=== PATIENT | female | born 1975 | race Caucasian/White ===

== ENCOUNTER → 2023-05-16 | Outpatient (CLI) | payer BC ==
--- NOTE | 2023-05-16 16:07 | P.SLEEP ---
History of Present Illness DATE: 05/16/2023 CONSULTATION/NEW PATIENT EVALUATION HISTORY OF PRESENT ILLNESS/SLEEP-WAKE EVALUATION: 48-year-old lady had been ev aluated in the sleep center for possible obstructive sleep apnea hypopnea syndrome. SLEEP SCHEDULE: Usually sleep schedule from 1pm to 6 AM on weekdays and from 11 PM to 8 AM on the weekend. FALLING ASLEEP: Sometimes patient has difficulties with falling asleep, has TV set in bedroom. DURING SLEEP: Patient usually sleeps on the side and back position with snoring and several awakenings from sleep. Positive history of episodes of gasping for air. No history of hypnogogical hallucinations, sleep paralysis, or cataplexy. DURING THE DAY/WAKE STATE: During the day patient may feel sleepiness especially as a passenger in the car.. [place] sleepiness scale is 8. Patient takes 1 nap at 4 PM. PAST MEDICAL HISTORY: Mostly negative. PAST SURGICAL HISTORY: Cholecystectomy, D&C. MEDICATIONS: control pills. SOCIAL HISTORY: Negative for smoking or using alcohol. FAMILY HISTORY: Snoring, headaches, cancer, arthritis. REVIEW OF SYSTEMS: Snoring, awakenings from sleep. No fevers. No double vision. No recent chest pain. No shortness of breath. No abdominal pain. No bleeding episodes. No blood in urine. No seizure episodes. PHYSICAL EXAMINATION: GENERAL: A pleasant patient without any distress. VITAL SIGNS: BP 153/105, HR 78, RR 16, weight 208 pounds, height 5 foot 7 inches, body mass index 32.5. HEENT: PERRLA, EOMI. Evaluation of oropharynx showed tongue protrudes midline, low position of soft palate Mallampati 3, retrognathia 2 mm. NECK: Supple. No JVD. Thyroid is not palpable. . LUNGS: Clear to percussion and to auscultation. Good air exchange. No wheezing or rhonchi. HEART: S1, S2 regular. No murmurs, gallops or rubs. ABDOMEN: Soft and nontender. Bowel sounds are present. No organomegaly appreciated. EXTREMITIES: No clubbing or cyanosis. MOSS BLEACHER: Awake, alert, and oriented x3. Cranial nerves 2 to 7 intact. There is no fasciculation or atrophy noted. No focal deficits observed. ASSESSMENT: 1. Snoring, multiple awakenings from sleep, small oropharyngeal airspace with low position of soft palate Mallampati 3 and retrognathia 2 mm. Obstructive sleep apnea hypopnea syndrome. 2. Mild obesity, BMI 32.5. 3. Hypertension in the office. 4. Status post D&C. 5 status post cholecystectomy. PLAN: 1. Home sleep apnea test for evaluation of patient's breathing during sleep. 2. Following plan after reading sleep study. 3. Preferable position during sleep on the side. 4. No driving if patient feels any sleepiness. Patient is aware of civil and criminal liability for unsafe driving. 5. Sleep hygiene with regular sleep time for at least 7.5-8 hours. 6. Watching weight. Thank you very much for referring this patient for consultation. Sincerely, Darryn Awan MD, PhD, FAASM. Diplomat of [place] [employer], Sleep Medicine Board by [place] [employer] [place] [employer] of [facility] [place] Sleep Note - Sleep Note Sleep Note: Temperature: Pulse Rate: Respiratory Rate: Blood Pressure: SpO2: Height: Weight: BMI: Neck Circumference:
== END ==
LOC: 3 N SLEEP 15:28
PROVIDERS: ATTEND Internal Medicine
DX: G47.33 Obstructive sleep apnea (adult) (pediatric) (principal); E66.9 Obesity, unspecified; I10 Essential (primary) hypertension; Z90.49 Acquired absence of other specified parts of digestive tract; Z98.890 Other specified postprocedural states; Z68.32 Body mass index [BMI] 32.0-32.9, adult
CPT/HCPCS: 99202

== ENCOUNTER → 2023-05-31 | Outpatient (CLI) | payer BC ==
--- NOTE | 2023-06-06 12:21 | P.PCN ---
Description of Procedure: CLINICAL: A home sleep apnea test has been done for confirmation of possible obstructive sleep apnea-hypopnea syndrome. DESCRIPTION OF PROCEDURE: RESULTS: Recording time was 7 hours 40 minutes. Evaluation time was 7 hours 28 minutes. Evaluation time is sufficient for making conclusion about results of the test. Raw data of sleep recording has been reviewed and is adequate. Respiratory channel showed 0 apneas and 42 hypopneas, multiple respiratory events with oxygen desaturation less than 4% and not scoreable following Medicare guidelines. Apnea-hypopnea index was 5.6 per hour. Pulse rate in the range between minimum 47, maximum 81, average 59 by computer calculation. Lowest desaturation was 74%. IMPRESSION: 1. Mild obstructive Sleep Apnea Hypopnea Syndrome, although home sleep apnea test may underestimate severity of obstructive sleep apnea hypopnea syndrome. 2. Hypertension in the office during consultation. Please see other impressions from consultation. PLAN: 1. I will see patient for follow-up visit to discuss results of the test and following plan. 2. Sleep hygiene with regular time in bed for at least 8 hours. 3. Watching weight. 4. No driving if feeling any sleepiness. Thank you very much for allowing me to participate in the management of your patient. Sincerely, Darryn Awan MD, PhD, FAASM Diplomat of [employer] [employer] Sleep Medicine Board of [place] [employer] Assembly Member of [facility] [place]
== END ==
LOC: 3 N SLEEP 16:35
PROVIDERS: ATTEND Internal Medicine
DX: G47.33 Obstructive sleep apnea (adult) (pediatric) (principal); I10 Essential (primary) hypertension

== ENCOUNTER → 2023-09-19 | Outpatient (CLI) | payer BC ==
[2023-09-19 15:52] VITALS: BP 153/83; PULSE 76; RESP 16; TEMP 98.1
--- NOTE | 2023-09-19 16:15 | P.PROGSL ---
Subjective DATE: 09/19/2023 FOLLOW UP VISIT. Patient returned to sleep center for follow-up visit to discuss results of home sleep apnea test and following plan. I discussed results of home sleep apnea test with patient in details. Sleep study showed mild obstructive sleep apnea hypopnea syndrome with apnea hypopnea index 5.6 times per hour. Home sleep a pnea test may underestimate apnea hypopnea index because during the test all time of the test considered to be sleep and in reality it may not be correct. . [place] sleepiness scale is 5, which is in normal range. MEDICATIONS: Please see below During physical exam: GENERAL: A pleasant patient without any distress. VITAL SIGNS: BP 153/83, HR 76, please see below. HEENT: PERRLA, EOMI. NECK: Supple. No JVD. LUNGS: Clear to percussion and to auscultation. Good air exchange. No wheezing or rhonchi. HEART: S1, S2 regular. ABDOMEN: Soft and nontender. EXTREMITIES: No clubbing or cyanosis. LOG CHAIN WORKER: Awake, alert, and oriented x3. No focal deficit. Impressions: 1. Mild obstructive sleep apnea hypopnea syndrome with apnea hypopnea index 5.6. 2. Hypertension again was documented in the office during today visit. 3. Mild obesity BMI 31.6. 4. Status post cholecystectomy. 5. Status post D&C. Plan: 1. Patient will monitor blood pressure. Low-sodium diet. If monitoring will confirm hypertension, patient should be initiated on CPAP treatment. 2. Sleep hygiene with regular time in bed for at least 8 hours. 3. Precautions related to driving. No driving if feel any sleepiness. Patient is aware about civil and criminal liability for unsafe driving, promised to follow recommendations. 4. Watching and losing weight. 5. Preferable position during the sleep on the side. 6. If no hypertension, follow-up visit in 1 year. Thank you very much for allowing me to participate in the management of your patient. Darryn Awan MD, PhD, FAASM. Diplomat of [place] [employer], Sleep Medicine Board by [place] [employer] Developer of [facility] [place] Objective - Vital Signs Vital Signs: Vital Signs Temp 98.1 F 09/19/23 15:51 Pulse 76 09/19/23 15:51 Resp 16 09/19/23 15:51 BP 153/83 09/19/23 15:51 Pulse Ox 97 09/19/23 15:51 FiO2 Home Medications: Home Medications Medication Instructions Recorded Confirmed Type Levonorgestrel/Ethin.estradiol 1 each PO DAILY 09/19/23 09/19/23 History [Levora-28 Tablet]
== END ==
LOC: 3 N SLEEP 15:21
PROVIDERS: ATTEND Internal Medicine
DX: G47.33 Obstructive sleep apnea (adult) (pediatric) (principal); E66.9 Obesity, unspecified; I10 Essential (primary) hypertension; Z68.31 Body mass index [BMI] 31.0-31.9, adult; Z90.49 Acquired absence of other specified parts of digestive tract; Z98.890 Other specified postprocedural states
CPT/HCPCS: 99212